=== PATIENT | male | born 1945 | race Caucasian/White ===

== ENCOUNTER 2018-08-19 14:57 | Inpatient (IN) | payer OTHER, MEDICAID ==
[~2018-08-19] VITALS: Ht 177.8 cm; Wt 127.0 kg
[~2018-08-19 14:57] MED LIST: CARV25TA PO; SPIR25TA PO; VAS10 PO
[2018-08-19 14:59] VITALS: BP 129/68
--- NOTE | 2018-08-19 15:11 | NUR ---
Patient ambulated to bed 3. RN evaluating patient at bedside.
--- NOTE | 2018-08-19 15:13 | NUR ---
BIB SELF WITH C/O LEFT LOWER BACK PAIN 8/10 AND RIGHT ARM PAIN AND SWOLLEN, PURPUL DISCOLORATION NOTED, STATED HAD STITCHES DONE AT [facility] 3 DAYS AGO, HX OF CHF. PATIENT POSITIONED FOR COMFORT; HOB ELEVATED; BEDRAILS UP X2; BED DOWN. ER MD MADE AWARE OF PT STATUS.
--- NOTE | 2018-08-19 15:40 | NUR ---
Patient being evaluated by DR MURRAY at bedside.
[2018-08-19] MEDS ORDERED: NACL 0.9% 2,000 ML IV SCH (15:41)
[2018-08-19] MEDS ORDERED: VANCOMYCIN 1,000 MG in DEXTROSE 5% 250 ML IV ONE (15:45)
[2018-08-19] MEDS ORDERED: PIPERACILLIN/TAZOBACTAM 3.375 GM in DEXT 5% MINI-BAG PLUS 50 ML IV ONE (15:45)
[2018-08-19] MEDS ORDERED: PIPERACILLIN/TAZOBACTAM 3.375 GM VIAL IV ONE (16:05)
[2018-08-19] MEDS ORDERED: VANCOMYCIN 1,000 MG VIAL ONE (16:05)
[2018-08-19 16:16] LABS: APPEARANCE,URINE CLEAR (CLEAR); BILIRUBIN,URINE NEGATIVE (NEGATIVE); BLOOD, URINE NEGATIVE (NEGATIVE); COLOR,URINE YELLOW (YELLOW); LEUKOCYTE ESTERASE ,URINE NEGATIVE (NEGATIVE); NITRITE, URINE NEGATIVE (NEGATIVE); UGLUCOSE NEGATIVE (NEGATIVE)
[2018-08-19 16:22] LABS: BASOPHILS % (AUTO) 0.3 % (0.0-2.0); EOSINOPHILS # (AUTO) 0.3 K/uL (0-0.4); EOSINOPHILS % (AUTO) 4.4 % (0.0-4.0); HEMATOCRIT 45.3 % (36-52); HEMOGLOBIN 15.8 g/dL (12.0-18.0); LYMPHOCYTES # (AUTO) 1.7 K/uL (2.0-11.5); LYMPHOCYTES % (AUTO) 22.8 % (20.5-51.1); MEAN CORPUSCULAR HEMOGLOBIN 32 pg (27-31); MEAN CORPUSCULAR HGB CONC 35 g/dL (33-37); MEAN CORPUSCULAR VOLUME 90.8 fL (80-94); MONOCYTES # (AUTO) 0.7 K/uL (0.8-1.0); MONOCYTES % (AUTO) 10.1 % (1.7-9.3); NEUTROPHILS # (AUTO) 4.5 K/uL (1.8-7.7); NEUTROPHILS % (AUTO) 62.4 % (42.2-75.2); PLATELET COUNT (AUTO) 185 K/uL (140-450); RED BLOOD CELL COUNT(AUTO) 4.99 MIL/uL (4.20-6.10); RED CELL DISTRIBUTION WIDTH 14.5 % (11.6-13.7); WHITE BLOOD COUNT (AUTO) 7.3 K/uL (4.8-10.8)
[2018-08-19 16:28] LABS: ANION GAP 9.2 (8-16); CARBON DIOXIDE 29.2 mmol/L (21-32); CREATININE 1.2 mg/dL (0.7-1.3); POTASSIUM 3.4 mmol/L (3.5-5.1)
--- NOTE | 2018-08-19 16:30 | NUR ---
US AT BEDSIDE
[2018-08-19 16:36] LABS: PROTHROMBIN TIME 10.2 secs (10.8-13.4)
[2018-08-19 16:40] LABS: ALBUMIN 3.5 g/dL (3.4-5.0); MAGNESIUM 1.9 mg/dL (1.8-2.4)
--- NOTE | 2018-08-19 17:29 | NUR ---
Jaime plaza in [facility] - 08/19/18 at 1733 by [email or web address] WOUND C/S RFA DONE BY DR MURRAY.
[2018-08-19] MEDS ORDERED: ACETAMINOPHEN 325 MG TAB PO PRN (17:35)
[2018-08-19] MEDS ORDERED: HYDROcodone/APAP 7.5/325 MG 1 TAB PO PRN (17:35)
[2018-08-19] MEDS ORDERED: ONDANSETRON 4 MG/2 ML VIAL IVP PRN (17:35)
[2018-08-19 18:18] LABS: BARBITURATE, URINE NEG. ng/ml (NEG <=200); BENZODIAZEPINE, URINE NEG. ng/mL (NEG <=200); CANNABINOID, URINE NEG. ng/mL (NEG <=50); COCAINE, URINE NEG. ng/mL (NEG <=300); OPIATE, URINE NEG. ng/mL (NEG <=2000); PHENCYCLIDINE SCREEN,URINE NEG. ng/mL (NEG <=25)
[2018-08-19 18:32] LABS: FREE T4 (FREE THYROXINE) 1.33 ng/dL (0.76-1.46); PHOSPHORUS 3.1 mg/dL (2.5-4.9); THYROID STIMULATING HORMONE 2.1 uIU/mL (0.34-3.74)
[2018-08-19 19:05] VITALS: BP 117/82
--- NOTE | 2018-08-19 19:05 | NUR ---
Patient will be admitted to care of DR CONSTANTINO. Admited to [facility]. Will go to room 128B. Belongings list completed. Report to LONDON UREÑA.
--- NOTE | 2018-08-19 19:30 | NUR ---
PATIENT ARRIVED TO UNIT, BEDSIDE REPORT RECEIVED FORM ER NURSE, PATIENT IN RESTROOM WILL ASSESS ONCE HES OUT, NOTED RIGHT ARM CELLULITIS, IV IN LEFT AC ACCORDING TO ER NURSE.
--- NOTE | 2018-08-19 19:40 | NUR ---
PATIENT WANTED TO LEAVE, EDUCATION PROVIDED BY DR ZULETA, PATIENT LEFT AMA, CALLED [employer], CHARGE NURSE AWARE, DC IV IN AC, CATH INTACT.
[2018-08-19] MEDS ORDERED: DOCUSATE SODIUM 100 MG GELCAP PO SCH (21:00)
== END 2018-08-19 19:40 | disposition left against medical advice (07) | DRG 603 ==
LOC: MED 14:57 → MMU 17:34
PROVIDERS: ADMIT General Practice; ATTEND General Practice
DX: L03.113 Cellulitis of right upper limb (principal); Z53.21 Procedure and treatment not carried out due to patient leaving prior to being seen by health care provider; N20.0 Calculus of kidney; S51.801A Unspecified open wound of right forearm, initial encounter; X58.XXXA Exposure to other specified factors, initial encounter; Y93.89 Activity, other specified; Z79.899 Other long term (current) drug therapy; Y92.89 Other specified places as the place of occurrence of the external cause; Y99.8 Other external cause status
CPT/HCPCS: 36415; 71045; 73090; 80053; 80305; 81003; 82150; 82550; 83036; 83605; 83690; 83735; 83880; 84100; 84439; 84443; 84484; 85025; 85379; 85610; 87040; 87086; 93005; 93971; 96365; 96366; 96367; 99285; J2543; J3370; J7060; Q0092

== ENCOUNTER 2018-08-22 12:52 | Emergency (ER) | payer OTHER, MEDICAID ==
[~2018-08-22] VITALS: Ht 177.8 cm; Wt 128.4 kg
[2018-08-22 13:03] VITALS: BP 141/67
--- NOTE | 2018-08-22 13:05 | NUR ---
PT RETURNED TO LOBBY IN STABLE CONDITION
--- NOTE | 2018-08-22 13:20 | NUR ---
pt. ambulated to ER bed 12
--- NOTE | 2018-08-22 13:35 | NUR ---
PT BIB SELF C/O HEARING LOSS IN BOTH EARS X 2 DAYS, DENIES PAIN, NO REDNESS/EDEMA/DRAINAGE NOTED TO EITHER CANAL. STATES "THEY FEEL VERY CLOGGED." PT PLACED ON BED IN LOW POSITION/LOCKED, SIDE RAIL UP X 1.
[2018-08-22 14:53] VITALS: BP 135/70
--- NOTE | 2018-08-22 14:53 | NUR ---
Patient discharged with v/s stable. Written and verbal after care instructions given and explained. Patient alert, oriented and verbalized understanding of instructions. Ambulatory with steady gait. All questions addressed prior to discharge. ID band removed. Patient advised to follow up with PMD. Rx of debrox given. Patient educated on indication of medication including possible reaction and side effects. Opportunity to ask questions provided and answered.
== END 2018-08-22 14:53 | disposition home or self-care (01) ==
LOC: MED 12:52
DX: H61.23 Impacted cerumen, bilateral (principal); Z79.899 Other long term (current) drug therapy
CPT/HCPCS: 99282

== ENCOUNTER 2018-09-27 12:24 | Emergency (ER) | payer OTHER, MEDICAID ==
[~2018-09-27] VITALS: Ht 177.8 cm; Wt 132.1 kg
[2018-09-27 12:25] VITALS: BP 116/79
--- NOTE | 2018-09-27 12:25 | NUR ---
PT TO ER BED 1
--- NOTE | 2018-09-27 12:26 | NUR ---
PATIENT PRESENTS TO ED WITHC/O LLQ ABDOMINAL PAIN X 2 WEEKS. DENIES ANY NAUSEA/VOMITING/DIARRHEA/FEVER. PT STATES PAIN IS 10/10 AT THIS TIME. AFEBRILE. NOTED SOB, O2 SAT 93-94% ON RA; PLACED ON 2L OF O2 VIA NC. VSS. PT POSITIONED FOR COMFORT; HOB ELEVATED; BEDRAILS UP X1; BED DOWN. ER MD TO EVALUATE PT.
--- NOTE | 2018-09-27 13:00 | NUR ---
PT AMBULATORY TO RESTROOM, EVEN STEADY GAIT.
[2018-09-27 13:28] LABS: BASOPHILS % (AUTO) 0.6 % (0.0-2.0); EOSINOPHILS # (AUTO) 0.3 K/uL (0-0.4); EOSINOPHILS % (AUTO) 4.9 % (0.0-4.0); HEMATOCRIT 45.6 % (36-52); HEMOGLOBIN 15.5 g/dL (12.0-18.0); LYMPHOCYTES % (AUTO) 17.3 % (20.5-51.1); MEAN CORPUSCULAR HEMOGLOBIN 32 pg (27-31); MEAN CORPUSCULAR HGB CONC 34 g/dL (33-37); MEAN CORPUSCULAR VOLUME 92.8 fL (80-94); MONOCYTES # (AUTO) 0.7 K/uL (0.8-1.0); MONOCYTES % (AUTO) 12.5 % (1.7-9.3); NEUTROPHILS # (AUTO) 3.7 K/uL (1.8-7.7); NEUTROPHILS % (AUTO) 64.7 % (42.2-75.2); PLATELET COUNT (AUTO) 174 K/uL (140-450); RED BLOOD CELL COUNT(AUTO) 4.91 MIL/uL (4.20-6.10); WHITE BLOOD COUNT (AUTO) 5.7 K/uL (4.8-10.8)
[2018-09-27 13:29] LABS: APPEARANCE,URINE CLEAR (CLEAR); BILIRUBIN,URINE NEGATIVE (NEGATIVE); BLOOD, URINE NEGATIVE (NEGATIVE); COLOR,URINE YELLOW (YELLOW); LEUKOCYTE ESTERASE ,URINE NEGATIVE (NEGATIVE); NITRITE, URINE NEGATIVE (NEGATIVE); UGLUCOSE NEGATIVE (NEGATIVE)
--- NOTE | 2018-09-27 13:37 | NUR ---
PT TO CT SCAN.
[2018-09-27 13:47] LABS: CARBON DIOXIDE 25.1 mmol/L (21-32); POTASSIUM 4.1 mmol/L (3.5-5.1)
[2018-09-27 13:52] LABS: ALBUMIN 3.7 g/dL (3.4-5.0); TOTAL BILIRUBIN 1.1 mg/dL (0.0-1.0)
--- NOTE | 2018-09-27 13:54 | NUR ---
C/O LEFT SIDE ABD PAIN FOR 2 WEEKS, W/ SOB AND COUGH. ABD IS ROUND, FIRM, NON TENDER. PT IS ON 2L NC, PT DOES NOT USE OXYGEN AT HOME. PT STATES HE HAS HAD COUGH FOR PAST 2 WEEKS W/ SOB. PT IS TACHYPNEA, SPEAKS FULL CLEAR SENTENCES, NO RETRACTIONS NOTED.
--- NOTE | 2018-09-27 14:56 | NUR ---
PT RESTING COMFORTABLY IN BED. DENIES ANY PAIN AT THIS TIME.
[2018-09-27] MEDS ORDERED: ASPIRIN 325 MG TAB PO ONE (16:15)
[2018-09-27 16:49] VITALS: BP 101/63
--- NOTE | 2018-09-27 16:49 | NUR ---
Patient does not wish to proceed with medical care recommended by Dr Marcos. Patient given information related to possible complications, up to and including , which could occur as a result of leaving hospital at this time. Patient verbalizes understanding of risks involved leaving against medical advice. Patient has signed AMA form. Rx of Aspirin given.
== END 2018-09-27 16:49 | disposition left against medical advice (07) ==
LOC: MED 12:24
DX: R07.9 Chest pain, unspecified (principal); R79.89 Other specified abnormal findings of blood chemistry; R10.32 Left lower quadrant pain; I50.9 Heart failure, unspecified; Z79.899 Other long term (current) drug therapy
CPT/HCPCS: 36415; 71045; 74176; 80053; 81003; 83690; 83880; 84484; 85025; 93005; Q0092; 99284

== ENCOUNTER 2018-09-29 03:02 | Emergency (ER) | payer OTHER, MEDICAID ==
[~2018-09-29] VITALS: Ht 167.6 cm; Wt 90.7 kg
[2018-09-29 03:05] VITALS: BP 111/93
--- NOTE | 2018-09-29 03:05 | NUR ---
PATIENT AMB TO BED 09
--- NOTE | 2018-09-29 03:10 | NUR ---
BIB SELF REPORTS SOB X 2 DAYS. AUDIBLE WHEEZING. DENIES NVD, CHEST PAIN, FEVERS. PATIENT ON 4L NC. SPEAKING IN COMPLETE SENTENCES. HISTORY OF CHF, TN. ON MONITOR, VSS. BED IN LOW LOCKED POSTION.
[2018-09-29] MEDS ORDERED: ASPIRIN 325 MG TAB PO ONE (03:20)
[2018-09-29] MEDS ORDERED: FUROSEMIDE 40 MG/4 ML VIAL IVP ONE (03:25)
[2018-09-29 03:33] LABS: BASOPHILS % (AUTO) 0.7 % (0.0-2.0); EOSINOPHILS # (AUTO) 0.2 K/uL (0-0.4); EOSINOPHILS % (AUTO) 3.6 % (0.0-4.0); HEMATOCRIT 44.4 % (36-52); HEMOGLOBIN 15.1 g/dL (12.0-18.0); LYMPHOCYTES # (AUTO) 1.6 K/uL (2.0-11.5); LYMPHOCYTES % (AUTO) 24.8 % (20.5-51.1); MEAN CORPUSCULAR HEMOGLOBIN 31 pg (27-31); MEAN CORPUSCULAR HGB CONC 34 g/dL (33-37); MEAN CORPUSCULAR VOLUME 92.6 fL (80-94); MONOCYTES # (AUTO) 0.8 K/uL (0.8-1.0); MONOCYTES % (AUTO) 11.9 % (1.7-9.3); NEUTROPHILS # (AUTO) 3.9 K/uL (1.8-7.7); PLATELET COUNT (AUTO) 164 K/uL (140-450); RED CELL DISTRIBUTION WIDTH 15.2 % (11.6-13.7); WHITE BLOOD COUNT (AUTO) 6.5 K/uL (4.8-10.8)
[2018-09-29 03:50] LABS: ALBUMIN 3.7 g/dL (3.4-5.0); ANION GAP 13.1 (8-16); CARBON DIOXIDE 25.9 mmol/L (21-32); CREATININE 1.2 mg/dL (0.7-1.3); TOTAL BILIRUBIN 1.3 mg/dL (0.0-1.0)
--- NOTE | 2018-09-29 03:53 | NUR ---
PATIENT AMB TO RESTROOM WITH STEADY GAIT.
--- NOTE | 2018-09-29 05:17 | NUR ---
PATIENT OFF OF O2, SPO2 95%. PER DR MONTANEZ ORDERS.
--- NOTE | 2018-09-29 07:00 | NUR ---
ASSUMED CARE OF PT.
[2018-09-29] MEDS ORDERED: TAMS0.4C96 PO (07:53)
--- NOTE | 2018-09-29 09:00 | NUR ---
1400ML YELLOW CLEAR URINE EMPTIED FROM BEDSIDE URINAL. PT PROVIDED WITH CLEAN URINAL.
--- NOTE | 2018-09-29 09:50 | NUR ---
IV removed, catheter intact and site benign. Applied folded 4x4 gauze and tape to stop bleeding.
--- NOTE | 2018-09-29 09:55 | NUR ---
Patient does not wish to proceed with medical care recommended by DR MURRAY. Patient given information related to possible complications, up to and including , which could occur as a result of leaving hospital at this time. Patient verbalizes understanding of risks involved leaving against medical advice. Patient has signed AMA form.
[2018-09-29 10:18] VITALS: BP 114/81
== END 2018-09-29 09:55 | disposition left against medical advice (07) ==
LOC: MED 03:02
DX: R06.02 Shortness of breath (principal); I50.9 Heart failure, unspecified; Z79.899 Other long term (current) drug therapy
CPT/HCPCS: 36415; 71045; 80053; 83880; 84484; 85025; 93005; 96374; 99284; J1940; Q0092

== ENCOUNTER 2018-10-17 23:17 | Inpatient (IN) | payer OTHER, MEDICAID ==
[~2018-10-17] VITALS: Ht 177.8 cm; Wt 127.0 kg
[~2018-10-17 23:17] MED LIST changes: +TAMS0.4C96 PO
[2018-10-17 23:19] VITALS: BP 126/78
--- NOTE | 2018-10-18 00:09 | NUR ---
TO ER BED 2
[2018-10-18 00:26] LABS: BASOPHILS # (AUTO) 0.1 K/uL (0.00-0.22); BASOPHILS % (AUTO) 0.8 % (0.0-2.0); EOSINOPHILS # (AUTO) 0.3 K/uL (0-0.4); EOSINOPHILS % (AUTO) 5.1 % (0.0-4.0); HEMOGLOBIN 14.8 g/dL (12.0-18.0); LYMPHOCYTES # (AUTO) 1.2 K/uL (2.0-11.5); LYMPHOCYTES % (AUTO) 17.6 % (20.5-51.1); MEAN CORPUSCULAR HEMOGLOBIN 32 pg (27-31); MEAN CORPUSCULAR HGB CONC 34 g/dL (33-37); MEAN CORPUSCULAR VOLUME 93.9 fL (80-94); MONOCYTES # (AUTO) 0.8 K/uL (0.8-1.0); MONOCYTES % (AUTO) 11.7 % (1.7-9.3); NEUTROPHILS # (AUTO) 4.3 K/uL (1.8-7.7); NEUTROPHILS % (AUTO) 64.8 % (42.2-75.2); PLATELET COUNT (AUTO) 163 K/uL (140-450); RED BLOOD CELL COUNT(AUTO) 4.69 MIL/uL (4.20-6.10); RED CELL DISTRIBUTION WIDTH 15.1 % (11.6-13.7); WHITE BLOOD COUNT (AUTO) 6.7 K/uL (4.8-10.8)
[2018-10-18 00:35] LABS: CARBON DIOXIDE 26.7 mmol/L (21-32); CREATININE 1.2 mg/dL (0.7-1.3); POTASSIUM 3.7 mmol/L (3.5-5.1)
[2018-10-18 00:41] LABS: ALBUMIN 3.5 g/dL (3.4-5.0)
[2018-10-18] MEDS ORDERED: FUROSEMIDE 40 MG/4 ML VIAL IVP ONE ×2 (01:10→02:15)
--- NOTE | 2018-10-18 01:15 | NUR ---
72 Y/O M PRESENTED TO ED WITH C/O SOB X2 WEEKS. AAOX4. LABORED BREATHING AND TACHYPNEA. RESPIRATIONS RATE 26. O2 SATURATION 92% ON ROOM AIR. BILATERAL LUNG LEY CLEAR. CAP REFILL LESS THAN 3 SECONDS. SKIN PINK/DRY. ERMD NOTIFIED. WILL CONTINUE TO MONITOR. -O2 THERAPY INITATED. 2L O2 VIA NASAL CANNULA O2 SATURATION 92%. - INCREASED TO 4 L O2 VIA NASAL CANNULA O2 SATURATION 94% -INCREASED TO 5L O2 VIA NASAL CANNULA O2 SATURATION 97%
[2018-10-18] MEDS ORDERED: NACL 0.9% 1,000 ML IV SCH (02:21)
[2018-10-18] MEDS ORDERED: DOCUSATE SODIUM 100 MG GELCAP PO PRN (02:25)
[2018-10-18] MEDS ORDERED: HYDROcodone/APAP 5/325 MG 1 TAB TAB PO PRN (02:25)
[2018-10-18] MEDS ORDERED: MORPHINE SULFATE 2 MG/ML SYR IVP PRN (02:25)
[2018-10-18] MEDS ORDERED: ACETAMINOPHEN 325 MG TAB PO PRN (02:25)
[2018-10-18] MEDS ORDERED: ONDANSETRON 4 MG/2 ML VIAL IM/IVP PRN (02:25)
--- NOTE | 2018-10-18 02:43 | NUR ---
Patient will be admitted to care of Dr. Fulton. Admited to [facility]. Will go to room 122B. Belongings list completed. VSS at time of transport. Report to ADELITA Herrera. transfer of care at this time.
[2018-10-18 02:47] VITALS: BP 116/72
[2018-10-18 02:47] LABS: MAGNESIUM 1.8 mg/dL (1.8-2.4); PHOSPHORUS 4.1 mg/dL (2.5-4.9); PROTHROMBIN TIME 10.5 secs (10.8-13.4)
--- NOTE | 2018-10-18 02:47 | NUR ---
RECEIVED PATIENT, AND REPORT FROM ED NURSE FOR CONTINUITY OF CARE. PATIENT IS AAO X 4. ON ELEMENTARY ELL TEACHER. EXHIBITING SHORTNESS OF BREATH, ON 2L VIA NC BREATH SOUNDS ARE CLEAR ALL THROUGHOUT. LAST BOWEL MOVEMENT 10/17/2018, AMBULATES TO THE RESTROOM TO URINATE WITH MILD WEAKNESS DT SHORTNESS OF BREATH. PATIENT HAS LEFT 22GA IV, SALINE LOCK. ED ADMINISTERED 40MG X 2 LASIX ORDERED. SKIN IS INTACT. DENIES PAIN AT THIS TIME. WILL MONITOR PATIENT THROUGHOUT THE SHIFT.
[2018-10-18] MEDS ORDERED: ASPI-1718 PO (03:14)
[2018-10-18] MEDS ORDERED: FURO80TA6 PO (03:14)
[2018-10-18] MEDS ORDERED: ALBUTEROL SULFATE/IPRATROPIU 3 ML SOL IH PRN (03:20)
[2018-10-18 03:24] LABS: APPEARANCE,URINE CLEAR (CLEAR); BILIRUBIN,URINE NEGATIVE (NEGATIVE); BLOOD, URINE NEGATIVE (NEGATIVE); COLOR,URINE YELLOW (YELLOW); LEUKOCYTE ESTERASE ,URINE NEGATIVE (NEGATIVE); NITRITE, URINE NEGATIVE (NEGATIVE); PH,URINE 6.5 (5.0-9.0); UGLUCOSE TRACE (NEGATIVE)
[2018-10-18 03:32] LABS: BARBITURATE, URINE NEG. ng/ml (NEG <=200); BENZODIAZEPINE, URINE NEG. ng/mL (NEG <=200); CANNABINOID, URINE NEG. ng/mL (NEG <=50); COCAINE, URINE NEG. ng/mL (NEG <=300); OPIATE, URINE NEG. ng/mL (NEG <=2000); PHENCYCLIDINE SCREEN,URINE NEG. ng/mL (NEG <=25)
[2018-10-18 03:58] LABS: RBC,URINE 0-5 /HPF (0-5); WBC,URINE NONE SEEN /HPF (0-5)
--- NOTE | 2018-10-18 04:50 | NUR ---
MADE ROUNDS. PATIENT LYING DOWN, APPEARS TO BE ASLEEP WITH NO SIGNS OF DISTRESS AT THIS TIME. WILL CONTINUE TO MONITOR PATIENT.
--- NOTE | 2018-10-18 06:00 | NUR ---
MADE ROUNDS, PATIENT LYING DOWN, ASLEEP WITH NO SIGNS OF DISTRESS. WILL CONTINUE TO MONITOR PATIENT.
--- NOTE | 2018-10-18 07:01 | NUR ---
ENDORSED PATIENT TO AM SHIFT NURSE FOR CONTINUITY OF CARE. PATIENT LYING DOWN, ASLEEP, IN STABLE CONDITION AND WITH NO SIGNS OF DISTRESS.
--- NOTE | 2018-10-18 07:02 | NUR ---
RECEIVED BEDSIDE REPORT FROM BRANDAN RN. PATIENT ON TELE MONITOR AND STANDARD PRECAUTIONS IN PLACE. PATIENT AAOX4 AND ON 2L O2 NC, NO DISTRESS NOTED. BLE PITTING EDEMA. PATIENT AMBULATORY AND CONTINENT. PICC LINE ON LUE DOUBLE LUMEN, TKO, PATENT AND INTACT. BED IN LOW POSITION, CALL LIGHT WITHIN REACH, SIDE RAILS X2 UP
--- NOTE | 2018-10-18 07:53 | NUR ---
PATIENT HAS BEEN SCREENED AND CATEGORIZED HIGH NUTRITION RISK. PATIENT WILL BE SEEN WITHIN 1-2 DAYS OF ADMISSION. 10/18/18-10/19/[address]
[2018-10-18 08:00] VITALS: BP 108/87
[2018-10-18] MEDS ORDERED: ASPIRIN 81 MG TAB.CHEW PO SCH (09:00)
[2018-10-18] MEDS ORDERED: TAMSULOSIN 0.4 MG CAP PO SCH (09:00)
[2018-10-18] MEDS ORDERED: CARVEDILOL 12.5 MG TAB PO SCH (09:00)
[2018-10-18] MEDS ORDERED: SPIRONOLACTONE 50 MG TAB PO SCH (09:00)
[2018-10-18] MEDS ORDERED: FUROSEMIDE 40 MG TAB PO SCH (09:00)
[2018-10-18] MEDS ORDERED: SPIRONOLACTONE 25 MG TAB PO SCH (09:00)
--- NOTE | 2018-10-18 10:00 | NUR ---
VERIFIED WITH DR. HOOPER VITAL SIGN AND ASK ABOUT MEDS LASIX, SPIRONOLACTONE AND COREG, PER MD MAY GIVE
--- NOTE | 2018-10-18 10:21 | NUR ---
PATIENT RESTING WITH SHORT OF BREATH UPON EXERTION, ADVISED TO ALWAYS USE CALL LIGHT FOR HELP AND PATIENT AGREED WITH IT.
[2018-10-18] MEDS ORDERED: SPIRONOLACTONE 25 MG TAB ONE (10:22)
[2018-10-18 10:51] LABS: CARBON DIOXIDE 31.1 mmol/L (21-32); CREATININE 1.1 mg/dL (0.7-1.3); POTASSIUM 3.1 mmol/L (3.5-5.1)
[2018-10-18 12:00] VITALS: BP 100/78
--- NOTE | 2018-10-18 12:15 | NUR ---
PATIENT SITTING UP ON SIDE OF BED EATING LUNCH, ON 2L O2 NC, NO DISTRESS NOTED
--- NOTE | 2018-10-18 12:25 | NUR ---
10/18/18 RD INITIAL ASSESSMENT COMPLETED PLEASE REFER TO NUTRITION ASSESSMENT UNDER CARE ACTIVITY FOR ESTIMATED NUTRITIONAL NEEDS. 1. CONTINUE CARDIAC DIET TOLERATED 2. CARDIAC-TLC DIET EDUCATION WAS PROVIDED 3. A1C PENDING, CONSIDER FOLLOW-UP WITH [facility] [place] DIET EDUCATION 4. RD TO FOLLOW-UP 3-5 DAYS, MODERATE RISK QUITA STEVENS RD
--- NOTE | 2018-10-18 14:06 | NUR ---
US BEING DONE AT BEDSIDE
--- NOTE | 2018-10-18 14:55 | NUR ---
PATIENT STATED HE WANTS "TO GET OUT OF HERE." TOLD PATIENT HE IS NOT READY TO GO HOME, SINCE HES UNSTABLE. PATIENT STATED "I'M FINE." NOTIFIED DR. SWANSON, HE SPOKE TO PATIENT STATING HE IS UNABLE TO GO HOME, NEEDS TO CONTINUE MEDICATIONS AT THE HOSPITAL AND HE STILL NEEDS TO BE MONITORED. PATIENT STILL REFUSED. DR. SWANSON STATED HE MUST SIGN AMA PAPERS IF HE WISHES AND PATIENT AGREED
--- NOTE | 2018-10-18 15:11 | NUR ---
REMOVED WRIST BANDS AND IV, IV TIP INTACT. PATIENT LEAVING AGAINST MEDICAL ADVICE. DR. SWANSON INFORMED PATIENT OF CONSEQUENCES FOR LEAVING WHEN HE IS STILL UNSTABLE AND THE IMPORTANCE OF THE NEED TO CONTINUE MONITORING HIM DURING HOSPITALIZATION. PATIENT STILL REFUSED. PATIENT WHEELED OUT TO HIS CAR
== END 2018-10-18 15:10 | disposition left against medical advice (07) | DRG 292 ==
LOC: MED 23:17 → MTU 10-18 02:29
PROVIDERS: ADMIT General Practice; ATTEND General Practice
DX: I50.43 Acute on chronic combined systolic (congestive) and diastolic (congestive) heart failure (principal); J90 Pleural effusion, not elsewhere classified; Z68.41 Body mass index [BMI] 40.0-44.9, adult; E66.9 Obesity, unspecified; N40.1 Benign prostatic hyperplasia with lower urinary tract symptoms; N39.498 Other specified urinary incontinence; R73.03 Prediabetes; E87.6 Hypokalemia; Z53.21 Procedure and treatment not carried out due to patient leaving prior to being seen by health care provider; Z71.3 Dietary counseling and surveillance; Z79.899 Other long term (current) drug therapy; I25.2 Old myocardial infarction; Z79.82 Long term (current) use of aspirin; Z82.49 Family history of ischemic heart disease and other diseases of the circulatory system
CPT/HCPCS: 36415; 36600; 71045; 80048; 80053; 80305; 81001; 82803; 83036; 83690; 83735; 83880; 84100; 84484; 85025; 85610; 85730; 87081; 93005; 93970; 96374; 96375; 99291; J1644; J1940; J7030; Q0092